=== PATIENT | female | born 1950 | race Caucasian/White ===

== ENCOUNTER → 2016-04-03 16:57 | Outpatient (CLI) | payer MEDICARE ==
[2011-08-05 07:02] VITALS: BMI 38.1
== END | disposition home or self-care (01) ==
LOC: D.MAMMO 10:45
DX: Z12.31 Encounter for screening mammogram for malignant neoplasm of breast (principal)

== ENCOUNTER → 2016-09-25 13:10 | Outpatient (CLI) | payer MEDICARE, OTHER ==
[2011-08-05 07:02] VITALS: BMI 38.1
== END | disposition home or self-care (01) ==
LOC: D.MRI 13:10
DX: G43.711 Chronic migraine without aura, intractable, with status migrainosus (principal)

== ENCOUNTER 2016-10-23 05:03 | Day surgery (SDC) | payer MEDICARE, OTHER ==
[2016-10-22 10:40] LABS: HEMATOCRIT 48.8 % (36.0-48.0); HEMOGLOBIN 16.3 g/dL (12-16); MCHC 33.4 g/dL (31.0-37.0); MCV 95.7 fL (80.0-100.0); MEAN PLATELET VOLUME 9.9 fL (7.4-10.4); RBC 5.1 10x6/uL (4.00-5.40); RDW 13.7 % (11.5-14.5); WBC 10.8 10x3/uL (4.8-10.8)
[2016-10-22 11:06] LABS: ANION GAP 16.9 mmol/L (8-16); CALCIUM 9.4 mg/dL (8.5-10.1); CARBON DIOXIDE 24.1 mmol/L (21.0-32.0)
[~2016-10-23] VITALS: Ht 172.7 cm; Wt 115.7 kg
--- NOTE | ~2016-10-23 | OP ---
PATIENT NAME: CHAPINCITO COLÓN MEDICAL RECORD: [id number] :50 LOCATION:D.OPS ADMISSION DATE: SURGEON: ROD SHER MD DATE OF OPERATION: 10/23/2016 PREOPERATIVE DIAGNOSIS: Headache, rule out temporal arteritis. POSTOPERATIVE DIAGNOSIS: Headache, rule out temporal arteritis, path pending. PROCEDURE: Bilateral temporal artery biopsy. SURGEON: Rod Sher MD INSTRUMENT SPECIALIST: None. BLOOD LOSS: Minimal. ANESTHESIA: General. COMPLICATIONS: None. The risks, possible complications and alternatives to procedure were explained to the patient. She elects to proceed. OPERATIVE COURSE: The patient was conveyed to the operating room electively on 10/23/2016. General anesthesia was induced by anesthesia staff. Some of the temporal hair was shaved. Both temples and ears were sterilely prepped and draped. Identified the arterial signal in the right side and in front of the ear. An incision was accomplished. I dissected down to the temporal artery. There was no nervous injury during the dissection. Also identified the temporal vein. The temporal artery was confirmed by biphasic Doppler flow. A tie was placed proximally and distally on the temporal artery. I then excised the temporal artery between the 2 ties. Meticulous hemostasis was achieved with the electrocautery. The subdermis was approximated with interrupted 3-0 Vicryls. The skin was approximated with a running intracuticular 4-0 Vicryl. Dermabond was then applied. I then went around to the left side. The left ear and left face were sterilely prepped and draped. I identified the temporal artery anterior to the ear with a hand held Doppler. An incision was accomplished. I dissected down to the temporal artery as well as the temporal vein. The temporal artery was confirmed with biphasic flow. Ties were placed on the temporal artery proximally and distally. I then excised the temporal artery between the 2 ties. The subdermis was approximated with interrupted 3-0 Vicryls. The skin was approximated with a running intracuticular 4-0 Vicryl and then Dermabond. The patient was then extubated and conveyed to post-anesthesia care unit where she was in stable condition. TRANSINT:[id number] Voice Confirmation ID: [id number] DOCUMENT ID: [id number] OPERATIVE REPORT [id number] CHAPINCITO COLÓN ROD SHER MD CC: [id number] DICTATION DATE: 10/23/16 1113 OBSTETRICS GYN: 10/23/16 1415 [facility] 10/23/16 [id number] [place] [address]
[~2016-10-23 05:03] MED LIST: ATIVAN1 MG PO; GEMFIBROZIL600 MG PO; MOBIC7.5 MG PO; NORCO 7.5/325 T1 TA1 PO; OXYBUTYNIN CHLOR5 MG PO; PAXIL20 MG PO; PREDNISONE20 MG PO; ZYRTEC10 MG PO
[2016-10-23 07:07] VITALS: BP 119/75; Ht 172.7 cm; Wt 115.7 kg
--- NOTE | 2016-10-23 12:13 | NUR ---
1205 [place] DIET SERVED. PT. STATES BELIEVES DOES NOT NEED ANY PAIN PILLS YET.
== END 2016-10-23 13:00 | disposition home or self-care (01) ==
LOC: D.OPS 05:03 → D.PAN 08:45 → D.OPS 08:45 → D.PAN 09:10 → D.OPS 13:00 → D.PAN 14:15 → D.OPS 14:15
PROVIDERS: Anesthesiology
DX: R51 Headache (principal); J44.9 Chronic obstructive pulmonary disease, unspecified; K21.9 Gastro-esophageal reflux disease without esophagitis; E66.01 Morbid (severe) obesity due to excess calories; Z68.38 Body mass index [BMI] 38.0-38.9, adult; Z01.812 Encounter for preprocedural laboratory examination

== ENCOUNTER 2016-11-21 10:16 | Emergency (ER) | payer MEDICARE, OTHER ==
[2016-10-23 07:07] VITALS: BMI 38.8
== END 2016-11-21 11:28 | disposition home or self-care (01) ==
LOC: D.ER 10:16
DX: L03.211 Cellulitis of face (principal)

== ENCOUNTER 2017-05-31 12:29 | Emergency (ER) | payer MEDICARE, OTHER ==
[2016-10-23 07:07] VITALS: BMI 38.8
== END 2017-05-31 13:43 | disposition home or self-care (01) ==
LOC: D.ER 12:29
DX: S30.0XXA Contusion of lower back and pelvis, initial encounter (principal); W07.XXXA Fall from chair, initial encounter; Y93.89 Activity, other specified; Y92.238 Other place in hospital as the place of occurrence of the external cause

== ENCOUNTER 2018-07-08 08:00 | Outpatient (CLI) | payer MEDICARE, OTHER ==
[2016-10-23 07:07] VITALS: BMI 38.8
== END 2018-07-08 09:00 | disposition home or self-care (01) ==
LOC: D.MAMMO 08:00
PROVIDERS: ATTEND Family Medicine
DX: Z12.31 Encounter for screening mammogram for malignant neoplasm of breast (principal)

== ENCOUNTER → 2018-10-06 11:16 | Outpatient (CLI) | payer MEDICARE, OTHER ==
[2016-10-23 07:07] VITALS: BMI 38.8
== END | disposition home or self-care (01) ==
LOC: D.HCCARDIO 11:16
PROVIDERS: ATTEND Internal Medicine Cardiovascular Disease
DX: I34.0 Nonrheumatic mitral (valve) insufficiency (principal)

== ENCOUNTER → 2019-09-30 09:16 | Outpatient (CLI) | payer MEDICARE, OTHER ==
[2016-10-23 07:07] VITALS: BMI 38.8
== END | disposition home or self-care (01) ==
LOC: D.HCCECHO 09:16
PROVIDERS: ATTEND Internal Medicine Cardiovascular Disease
DX: I34.0 Nonrheumatic mitral (valve) insufficiency (principal)